=== PATIENT | male | born 1955 | race Caucasian/White ===

== ENCOUNTER 2018-05-15 17:21 | Inpatient (IN) | payer OTHER ==
[~2018-05-15] VITALS: Ht 190.5 cm; Wt 134.1 kg
[2018-05-15] MEDS ORDERED: ACETAMINOPHEN 325 MG TABLET PO PRN (19:00)
[2018-05-15] MEDS ORDERED: ONDANSETRON 2MG/ML, 2ML IVPush PRN (19:00)
[2018-05-15] MEDS ORDERED: DILTIAZEM 5 MG/ML, 5ML IVPush PRN (19:00)
[2018-05-15] MEDS ORDERED: NITROGLYCERIN 0.4 MG BOTTLE (25 TABS) SL PRN (19:00)
[2018-05-15] MEDS ORDERED: morphine SULFATE 10 MG/ML, 1ML IVPush PRN (19:00)
[2018-05-15] MEDS ORDERED: POLYETHYLENE GLYCOL 17 GM PACKET PO PRN (19:00)
[2018-05-15] MEDS ORDERED: PLEASE ENTER ALLERGIES MC SCH (19:30)
[2018-05-15 19:48] LABS: TROPONIN I < 0.015 ng/mL (0.000-0.045)
[2018-05-15] MEDS: SODIUM CHLORIDE 0.9% 1,000 ML IV SCH (20:16)
[2018-05-15] MEDS ORDERED: LISI-424 PO (22:12)
[2018-05-15] MEDS: AMIODARONE 900 MG in DEXTROSE 5% 482 ML IV PRN (23:40)
[2018-05-15] MEDS: FILTER 0.22 MICRON (AMIODARONE) IV PRN (23:40)
[2018-05-16 01:03] LABS: TROPONIN I < 0.015 ng/mL (0.000-0.045)
[2018-05-16 05:13] LABS: BASOPHILS # (AUTO) 0.01 x10^3/uL (0-0.1); BASOPHILS % (AUTO) 0 % (0-1); EOSINOPHILS # (AUTO) 0.05 x10^3/uL (0-0.4); EOSINOPHILS % (AUTO) 0 % (1-7); LYMPHOCYTES # (AUTO) 0.71 x10^3/uL (1-3.4); LYMPHOCYTES % (AUTO) 6 % (22-44); MD NO; MEAN CORPUSCULAR HEMOGLOBIN 27.3 pg (27.5-34.5); MEAN CORPUSCULAR HGB CONC 32.8 g/dL (33.2-36.2); MEAN CORPUSCULAR VOLUME 83.3 fL (81-97); MONOCYTES # (AUTO) 1.43 x10^3/uL (0.2-0.8); MONOCYTES % (AUTO) 12 % (2-9); NEUTROPHILS # (AUTO) 9.81 x10^3/uL (1.8-6.8); NEUTROPHILS % (AUTO) 82 % (42-75); PLATELET COUNT 465 x10^3/uL (130-400); RED BLOOD COUNT 3.61 x10^6/uL (4.38-5.82)
[2018-05-16 05:24] LABS: ALBUMIN 2.6 g/dL (3.4-5.0); ANION GAP 7 mmol/L (5-15); CALCIUM 8.5 mg/dL (8.5-10.1); CHLORIDE 106 mmol/L (98-107)
[2018-05-16 05:33] LABS: ALANINE AMINOTRANSFERASE 68 U/L (12-78); ALKALINE PHOSPHATASE 147 U/L (45-117); BILIRUBIN,TOTAL 0.8 mg/dL (0.2-1.0); CHOL/HDL RATIO 5.1; CHOLESTEROL, TOTAL 149 mg/dL (140-239); CREATININE 1.11 mg/dL (0.7-1.3); HDL CHOL % 19 % (26-37); HDL CHOLESTEROL (DIRECT) 29 mg/dL (40-60); LDL CHOLESTEROL,CALCULATED 105 mg/dL (54-169); LDL/HDL RATIO 3.6 (0.5-3.0); THYROID STIMULATING HORMONE 0.563 mIU/L (0.358-3.740); TOTAL PROTEIN 6.7 g/dL (6.4-8.2); TRIGLYCERIDES 75 mg/dL (50-200); VLDL CHOLESTEROL 15 mg/dL (0-25)
[2018-05-16] MEDS ORDERED: FENTANYL PF 100 MCG/2ML ONE (07:53)
[2018-05-16] MEDS ORDERED: MIDAZOLAM 1 MG/ML, 5ML ONE (07:53)
[2018-05-16] MEDS ORDERED: AMIODARONE 150 MG in DEXTROSE 5% 100 ML IV ONE (10:00)
[2018-05-16] MEDS: ENOXAPARIN 120MG/0.8ML SQ SCH ×2 (10:25→22:15)
[2018-05-16] MEDS ORDERED: PROPOFOL 10 MG/ML, 20ML ONE (12:46)
[2018-05-16] MEDS: SODIUM CHLORIDE 0.9% 1,000 ML IV SCH (18:04)
[2018-05-17] MEDS: AMIODARONE 900 MG in DEXTROSE 5% 482 ML IV PRN (02:25)
[2018-05-17] MEDS: FILTER 0.22 MICRON (AMIODARONE) IV PRN (02:25)
[2018-05-17] MEDS ORDERED: TERAZOSIN 5MG CAPSULE ONE (02:28)
[2018-05-17] MEDS ORDERED: TERAZOSIN 5MG CAPSULE PO ONE (02:30)
[2018-05-17 04:33] LABS: BASOPHILS # (AUTO) 0.02 x10^3/uL (0-0.1); BASOPHILS % (AUTO) 0 % (0-1); EOSINOPHILS # (AUTO) 0.04 x10^3/uL (0-0.4); EOSINOPHILS % (AUTO) 0 % (1-7); LYMPHOCYTES % (AUTO) 7 % (22-44); MD NO; MEAN CORPUSCULAR HGB CONC 32.5 g/dL (33.2-36.2); MEAN CORPUSCULAR VOLUME 82.9 fL (81-97); MEAN PLATELET VOLUME 7.9 fL (7.4-10.4); MONOCYTES # (AUTO) 1.13 x10^3/uL (0.2-0.8); MONOCYTES % (AUTO) 10 % (2-9); NEUTROPHILS # (AUTO) 9.26 x10^3/uL (1.8-6.8); NEUTROPHILS % (AUTO) 82 % (42-75); PLATELET COUNT 442 x10^3/uL (130-400); RED BLOOD COUNT 3.71 x10^6/uL (4.38-5.82); RED CELL DISTRIBUTION WIDTH 16.1 % (9.4-14.8)
[2018-05-17 04:38] LABS: ANION GAP 6 mmol/L (5-15); CALCIUM 8.3 mg/dL (8.5-10.1); CHLORIDE 107 mmol/L (98-107); CREATININE 1.16 mg/dL (0.7-1.3)
[2018-05-17] MEDS ORDERED: ENOXAPARIN 150 MG/ML SQ SCH (10:00)
[2018-05-17] MEDS ORDERED: ENOXAPARIN 100 MG/ML SQ SCH (10:30)
[2018-05-17] MEDS ORDERED: ENOXAPARIN 40 MG/0.4 ML SQ SCH (10:30)
[2018-05-17] MEDS: NAPROXEN 500 MG TABLET PO SCH ×2 (11:59→21:34)
[2018-05-17] MEDS: AMIODARONE 200 MG TABLET PO SCH ×2 (11:59→21:35)
[2018-05-17] MEDS: COLCHICINE 0.6 MG TABLET PO SCH (11:59)
[2018-05-17] MEDS ORDERED: RIVAROXABAN 20 MG TABLET PO SCH (17:00)
[2018-05-17 18:57] VITALS: BP 107/65
[2018-05-17] MEDS ORDERED: TERAZOSIN 5MG CAPSULE PO SCH (21:00)
[2018-05-18 00:34] VITALS: BP 118/58
[2018-05-18 05:13] LABS: BASOPHILS % (AUTO) 2 % (0-1); EOSINOPHILS # (AUTO) 0.12 x10^3/uL (0-0.4); EOSINOPHILS % (AUTO) 2 % (1-7); LYMPHOCYTES # (AUTO) 0.83 x10^3/uL (1-3.4); LYMPHOCYTES % (AUTO) 10 % (22-44); MD NO; MEAN CORPUSCULAR HEMOGLOBIN 27.1 pg (27.5-34.5); MEAN CORPUSCULAR HGB CONC 32.8 g/dL (33.2-36.2); MEAN CORPUSCULAR VOLUME 82.7 fL (81-97); MEAN PLATELET VOLUME 8.3 fL (7.4-10.4); MONOCYTES # (AUTO) 0.85 x10^3/uL (0.2-0.8); MONOCYTES % (AUTO) 10 % (2-9); NEUTROPHILS # (AUTO) 6.16 x10^3/uL (1.8-6.8); NEUTROPHILS % (AUTO) 76 % (42-75); PLATELET COUNT 380 x10^3/uL (130-400); RED BLOOD COUNT 3.52 x10^6/uL (4.38-5.82); RED CELL DISTRIBUTION WIDTH 15.9 % (9.4-14.8)
[2018-05-18 05:22] LABS: ANION GAP 3 mmol/L (5-15); CHLORIDE 109 mmol/L (98-107)
[2018-05-18 07:41] VITALS: BP 110/67
[2018-05-18] MEDS: NAPROXEN 500 MG TABLET PO SCH (07:42)
[2018-05-18] MEDS: COLCHICINE 0.6 MG TABLET PO SCH (07:42)
[2018-05-18] MEDS: AMIODARONE 200 MG TABLET PO SCH (07:43)
[2018-05-18] MEDS ORDERED: AMIODARONE 200 MG TABLET PO SCH (09:00)
[2018-05-18] MEDS ORDERED: AMIO200T42 PO (12:04)
[2018-05-18] MEDS ORDERED: COLC0.6T37 PO (12:04)
[2018-05-18] MEDS ORDERED: TERA5CAP3 PO (12:04)
[2018-05-18] MEDS ORDERED: RIVA20TA PO (12:04)
[2018-05-18] MEDS ORDERED: NAPR-856 PO (12:04)
[2018-05-18] MEDS ORDERED: ATOR40TA78 PO (12:05)
== END 2018-05-18 13:11 | disposition home or self-care (01) | DRG 314 ==
LOC: CSU 18:30 → 5SO 05-17 13:29
PROVIDERS: ADMIT Thoracic Surgery (Cardiothoracic Vascular Surgery); ATTEND Hospitalist
PROC: 5A2204Z Restoration of Cardiac Rhythm, Single (ICD-10-PCS; 2018-05-16)
PROC: 0W9D30Z Drainage of Pericardial Cavity with Drainage Device, Percutaneous Approach (ICD-10-PCS; principal; 2018-05-16 12:45)
DX: I31.3 Pericardial effusion (noninflammatory) (principal); E43 Unspecified severe protein-calorie malnutrition; D68.69 Other thrombophilia; I48.92 Unspecified atrial flutter; D64.9 Anemia, unspecified; E78.5 Hyperlipidemia, unspecified; I12.9 Hypertensive chronic kidney disease with stage 1 through stage 4 chronic kidney disease, or unspecified chronic kidney disease; I44.0 Atrioventricular block, first degree; I48.91 Unspecified atrial fibrillation; N18.9 Chronic kidney disease, unspecified; N40.0 Benign prostatic hyperplasia without lower urinary tract symptoms; Z87.891 Personal history of nicotine dependence; Z90.49 Acquired absence of other specified parts of digestive tract; Z79.899 Other long term (current) drug therapy; Z79.01 Long term (current) use of anticoagulants
CPT/HCPCS: 33010; 36415; 71045; 76930; 80048; 80053; 80061; 83735; 84100; 84443; 84484; 85025; 87015; 87070; 87075; 87081; 87102; 87116; 87205; 87206; 88112; 88305; 89051; 93005; 93306; 93308; 93312; 93321; 93325; 99156; C1729; G0378; J1650; J2250; J2704; J3010; J0282; J2270; J7030; J7060

== ENCOUNTER → 2018-06-13 | Outpatient (CLI) | payer MEDICAID ==
[~2018-06-13] MED LIST: AMIO200T42 PO; ATOR40TA78 PO; COLC0.6T37 PO; LISI-424 PO; NAPR-856 PO; RIVA20TA PO; TERA5CAP3 PO
== END | disposition home or self-care (01) ==
LOC: CVU 07:34
PROVIDERS: ATTEND Internal Medicine Cardiovascular Disease
DX: I34.0 Nonrheumatic mitral (valve) insufficiency (principal)
CPT/HCPCS: 93306

== ENCOUNTER → 2020-11-22 | Outpatient (CLI) | payer MEDICARE ==
[~2020-11-22] MED LIST changes: -LISI-424 PO; +LISI-606 PO
== END | disposition home or self-care (01) ==
LOC: RAD 16:00
PROVIDERS: ATTEND Nurse Practitioner Family
DX: Z01.818 Encounter for other preprocedural examination (principal)
CPT/HCPCS: 71046